=== PATIENT | male | born 1995 | race Caucasian/White ===

== ENCOUNTER 2021-04-25 08:00 | Outpatient (CLI) | payer OTHER | END 2021-04-25 23:59 | LOC: LAB.N 08:00 | PROVIDERS: ATTEND Nurse Practitioner | DX: U07.1 COVID-19 (principal) | CPT/HCPCS: 87275; 87276 ==

== ENCOUNTER 2022-09-19 08:30 | Outpatient (CLI) | payer OTHER ==
[2022-09-19 21:28] LABS: CHLAMYDIA TRACHOMATIS DNA NEGATIVE (NEGATIVE); NEISSERIA GONORRHOEAE DNA NEGATIVE (NEGATIVE); TRICHOMONAS VAGINALIS DNA NEGATIVE (NEGATIVE)
== END 2022-09-19 08:45 | disposition home or self-care (01) ==
LOC: LAB.N 08:30
PROVIDERS: ATTEND Registered Nurse
DX: R10.2 Pelvic and perineal pain (principal)
CPT/HCPCS: 87491; 87591; 87661

== ENCOUNTER 2023-01-28 12:39 | Outpatient (CLI) | payer OTHER | END 2023-01-28 12:40 | disposition critical access hospital (66) | LOC: EMS 12:39 | DX: R45.851 Suicidal ideations (principal) | CPT/HCPCS: A0425; A0429 ==

== ENCOUNTER 2023-01-28 13:01 | Emergency (ER) | payer OTHER ==
[2023-01-28 13:22] VITALS: BP 143/90; O2SAT 99
[2023-01-28 13:22] LABS: BASOPHILS # (AUTO) 0.1 10^3/uL (0.0-0.1); BASOPHILS % (AUTO) 0.6 %; EOSINOPHILS % (AUTO) 0.4 %; HCT - HEMATOCRIT 45.7 % (42.0-52.0); HGB - HEMOGLOBIN 15.1 g/dL (14.0-18.0); LYMPHOCYTES # (AUTO) 1.6 10^3/uL (1.5-3.5); LYMPHOCYTES % (AUTO) 20.3 %; MEAN CORPUSCULAR HEMOGLOBIN 27.1 pg (27.0-31.0); MEAN CORPUSCULAR VOLUME 81.9 fL (80.0-94.0); MEAN PLATELET VOLUME 8.8 fL (7.4-11.4); MONOCYTES # (AUTO) 0.6 10^3/uL (0.0-1.0); MONOCYTES % (AUTO) 8.2 %; NEUTROPHILS # (AUTO) 5.5 10^3/uL (1.5-6.6); NEUTROPHILS % (AUTO) 70.2 %; PLT - PLATELET COUNT 288 10^3/uL (130-450); RED BLOOD COUNT 5.58 10^6/uL (4.70-6.10); RED CELL DISTRIBUTION WIDTH 12.6 % (12.0-15.0); WHITE BLOOD COUNT 7.8 x10^3/uL (4.8-10.8)
[2023-01-28 13:54] LABS: ALBUMIN 4.7 g/dL (3.2-5.5); ALBUMIN/GLOBULIN RATIO 1.6 (1.0-2.2); ALKALINE PHOSPHATASE 88 IU/L (42-121); ALT ALANINE AMINOTRANSFERASE 42 IU/L (10-60); AST ASPARTATE AMINOTRANSFERASE 26 IU/L (10-42); BILIRUBIN,TOTAL 0.9 mg/dL (0.2-1.0); BUN - BLOOD UREA NITROGEN 12 mg/dL (6-20); CALCIUM 9.9 mg/dL (8.5-10.3); CARBON DIOXIDE - CO2 28 mmol/L (21-32); CHLORIDE 102 mmol/L (101-111); CK- CREATINE KINASE 230 IU/L (30-223); CREATININE 0.9 mg/dL (0.6-1.3); ETOH - ETHANOL < 10.0 mg/dL; GFR - MDRD 102 (>89); GLUCOSE 132 mg/dL (74-104); LIPASE 18 U/L (11-82); MAGNESIUM 1.8 mg/dL (1.7-2.3); POTASSIUM 3.8 mmol/L (3.5-4.5); SODIUM 137 mmol/L (135-145); TOTAL PROTEIN 7.7 g/dL (6.4-8.9)
[2023-01-28 13:56] LABS: MUDS CUTOFF CONCENTRATIONS CUTOFF CONC BELOW:
--- NOTE | 2023-01-28 13:56 | ED Physician Documentation ---
History of Present Illness - Stated complaint Stated Complaint: SI - Chief complaint Chief Complaint: MHE - Additonal information Additional information: 27-year-old male who is active [employer] was referred to the emergency department by his psychiatrist. He reports that for several months he has been having difficulty sleeping. He is tortured by thoughts of past events. He reports passive suicidal ideation. However he tells me that when he was talking to his psychiatrist he talked about wanting to really end his life last week however he did not because he had some things he needed to"take care of first". On presentation the emergency department he is alert well-appearing. He does not desire to be hospitalized. He is hoping he can have medication adjustment. He resides in private housing with 3 other roommates. Denies access to guns or weapons. Denies alcohol or substance use. No history of psychiatric hospitalization in the past. Review of Systems Constitutional: denies: Fever, Chills Cardiac: reports: Reviewed and negative Respiratory: reports: Reviewed and negative GI: reports: Reviewed and negative Neurologic: denies: Numbness, Difficulty speaking Psychiatric: reports: Depressed, Suicidal, Insomnia. denies: Homicidal, Hallucinations, Delusions, Anxiety PD PAST MEDICAL HISTORY - Allergies Allergies/Adverse Reactions: Allergies Allergy/AdvReac Type Severity Reaction Status Date / Time No Known Drug Allergies Allergy Verified 01/28/23 13:15 PD ED PE NORMAL - General General: Alert and oriented X 3, No acute distress, Well developed/nourished - HEENT HEENT: Atraumatic, Moist mucous membranes - Neck Neck: Supple, no meningeal sign - Cardiac Cardiac: RRR, No murmur - Respiratory Respiratory: No respiratory distress, Clear bilaterally - Abdomen Abdomen: Normal bowel sounds, Soft, Non tender - Derm Derm: Normal color, Warm and dry, No rash, Other (Thinning hair) - Extremities Extremities: No deformity - Neuro Neuro: Alert and oriented X 3, fourdrinier tender 2-12 intact Eye Opening: Spontaneous Motor: Obeys Commands Verbal: Oriented GCS Score: 15 - Psych Psych: Other (Flat affect. Endorses suicidal ideation but not sure he would act on it. Does not like to talk about what his plan would be. States that he was for sure going to end things last week, but had to take care of some things first.) Results - Vitals Vitals: Vital Signs - 24 hr 01/28/23 13:10 Temperature 36.9 C Heart Rate 110 H Respiratory 18 Rate Blood Pressure 143/90 H O2 Saturation 99 Oxygen O2 Source Room air - Labs Labs: Laboratory Tests 01/28/23 01/28/23 01/28/23 13:16 13:16 13:52 WBC 7.8 RBC 5.58 Hgb 15.1 Hct 45.7 MCV 81.9 MCH 27.1 MCHC 33.0 RDW 12.6 Plt Count 288 MPV 8.8 Neut # (Auto) 5.5 Lymph # (Auto) 1.6 Spencer # (Auto) 0.6 Eos # (Auto) 0.0 Baso # (Auto) 0.1 Absolute Nucleated RBC 0.00 Nucleated RBC % 0.0 Sodium 137 Potassium 3.8 Chloride 102 Carbon Dioxide 28 Anion Gap 7.0 BUN 12 Creatinine 0.9 Estimated GFR (MDRD) 102 Glucose 132 H Calcium 9.9 Magnesium 1.8 Total Bilirubin 0.9 AST 26 ALT 42 Alkaline Phosphatase 88 Total Creatine Kinase 230 H Total Protein 7.7 Albumin 4.7 Globulin 3.0 Albumin/Globulin Ratio 1.6 Lipase 18 TSH 0.73 Urine Color YELLOW Urine Clarity CLEAR Urine pH 6.0 Ur Specific [place] 1.015 Urine Protein NEGATIVE Urine Glucose (UA) NEGATIVE Urine Ketones TRACE Urine Occult Blood NEGATIVE Urine Nitrite NEGATIVE Urine Bilirubin NEGATIVE Urine Urobilinogen 0.2 (NORMAL) Ur Leukocyte Esterase NEGATIVE Ur Microscopic Review NOT INDICATED Urine Culture Comments NOT INDICATED Salicylates < 1.5 Urine Opiates Screen NEGATIVE Ur Oxycodone Screen NEGATIVE Urine Methadone Screen NEGATIVE Ur Propoxyphene Screen NEGATIVE Acetaminophen < 0.1 Ur Barbiturates Screen NEGATIVE Ur Tricyclics Screen NEGATIVE Ur Phencyclidine Scrn NEGATIVE Ur Amphetamine Screen NEGATIVE U Methamphetamines Scrn NEGATIVE U Benzodiazepines Scrn NEGATIVE Urine Cocaine Screen NEGATIVE U Cannabinoids Screen NEGATIVE Ethyl Alcohol < 10.0 PD Medical Decision Making - ED course Complexity details: reviewed results, re-evaluated patient, d/w patient ED course: 27-year-old male who is active [employer] presents emergency department for evaluation of suicidal ideation. He had expressed to his psychiatrist that he was planning on fully ending everything last week but he had to take care of a few things first. He has a longstanding history of depressive thoughts, he struggles with night terrors and memories of recent and past events. Patient did have CBC, electrolytes urine drug screen obtained today which per my interpretation showed no acute findings. He was seen by our social media manager who felt that he was a high risk for self-harm and as such we reached out to various psychiatric hospitals but he was excepted to [facility] again. Patient's chief is at the bedside. The patient agrees to go voluntarily. Appropriate COBRA paperwork completed. Departure - Departure Disposition: [facility] Psych Hosp/Unit DC/Xfer Clinical Impression: Suicidal ideation Depression Qualifiers: Depression Type: other depression Qualified Code(s): F32.89 - Other specified depressive episodes Forms: PCP List
[2023-01-28 14:01] LABS: THYROID STIMULATING HORMONE 0.73 uIU/mL (0.34-5.60)
[2023-01-28 14:04] LABS: BILIRUBIN,URINE NEGATIVE (NEGATIVE); GLUCOSE, URINE (UA) NEGATIVE (NEGATIVE); KETONES,URINE (UA) TRACE mg/dL (NEGATIVE); LEUKOCYTE ESTERASE, URINE NEGATIVE (NEGATIVE); NITRITE,URINE NEGATIVE (NEGATIVE); OCCULT BLOOD,URINE NEGATIVE (NEGATIVE); PROTEIN,URINE NEGATIVE (NEGATIVE); UROBILINOGEN,URINE 0.2 (NORMAL) E.U./dL (NORMAL)
[2023-01-28 14:08] LABS: CLARITY,URINE CLEAR (CLEAR)
[2023-01-28 14:16] LABS: SALICYLATE < 1.5 mg/dL
[2023-01-28 14:18] LABS: AMPHETAMINE SCREEN,URINE NEGATIVE (NEGATIVE); BARBITURATE SCREEN,UR NEGATIVE (NEGATIVE); BENZODIAZEPINES SCREEN, URINE NEGATIVE (NEGATIVE); COCAINE SCREEN URINE NEGATIVE (NEGATIVE); METHADONE SCREEN, URINE NEGATIVE (NEGATIVE); METHAMPHETAMINES SCREEN, URINE NEGATIVE (NEGATIVE); OPIATE SCREEN, URINE NEGATIVE (NEGATIVE); OXYCODONE SCREEN, URINE NEGATIVE (NEGATIVE); PROPOXYPHENE SCREEN, URINE NEGATIVE (NEGATIVE); THC CANNABINOID SCREEN, URINE NEGATIVE (NEGATIVE); TRICYCLIC ANTIDEPRESSANT,URINE NEGATIVE (NEGATIVE)
[2023-01-28 14:19] LABS: ACETAMINOPHEN < 0.1 ug/mL
== END 2023-01-28 19:56 ==
LOC: EDUNIT# → ED 13:01
DX: R45.851 Suicidal ideations (principal); F32.89 Other specified depressive episodes
CPT/HCPCS: 36415; 80053; 80306; 80307; 80320; 80329; 81001; 81003; 82550; 83690; 83735; 84443; 85025; 87086; 99284; 99285

== ENCOUNTER 2023-04-30 11:10 | Outpatient (CLI) | payer OTHER ==
--- NOTE | 2023-04-30 11:52 | Sleep Patient Instructions ---
Sleep Center Visit Summary - Patient Visit Information Reason for Visit: Initial consult for evaluation of sleep disordered breathing and other sleep issues. - Patient Instructions Instructions Attached: Sleep Study Additional Instructions: You will be completing a sleep study, either an in-lab polysomnography (PSG) or home sleep study (HST). You will follow-up in the sleep care office after the sleep study is completed to hear the results and talk about therapy, if needed. You will be called by our office staff to schedule this appointment, but you may contact us with any questions. - Clinic Information Contact: [facility] [address] [place] [address] [email or web address] T: [phone]
--- NOTE | 2023-04-30 11:57 | SLEEP CARE CONSULTATION ---
Information from patient questionnaire entered by Nery Rueda. I have reviewed and concur with the information entered by Nery Rueda. This document represents the service I personally performed and the decisions made by me, Alyica Soliz ARNP. History of Present Illness Service Date and Time: 04/30/2023 1110 Reason for Visit: New patient Chief Complaint: reports: Insomnia, Unrefreshed sleep, Snoring, Excessive daytime sleepiness, Fatigue, Frequent awakenings at night Date of Onset: 3MONTHS Usual bedtime: 9PM Time it takes to fall asleep: 1-2HRS Snores at night: Yes Observed to quit breathing while asleep: Yes Sleeps alone due to snoring: No Number of times waking at night: 3 Reasons for waking at night: reports: Gasping for air, Pain, Bathroom Toss, Turn, or Twitch while sleeping: Yes Recalls having dreams: Yes Usually gets out of bed at: 5AM-0600 Feels refreshed in the morning: No Morning headache: Yes (all the time; last for 1-2 hours) Sleepy or fatigued during the day: Yes (rare unintentional naps) Ever fallen asleep while driving: No Takes day naps: No Dreams during day naps: Yes Prior sleep studies: No Additional HPI information: I had the pleasure of seeing ELISABET BANKS today regarding the possibility of him having a sleep disorder. His current complaints are excessive daytime sleepiness, fatigue, frequent night awakenings, insomnia, snoring and unrefres hed sleep. He says he is tired all the time. He says it is hard to breathe at night sometimes, he has to wake up at night to catch his breath. He used to wake up nearly nightly with nightmares before he started Prazosin in January. They have been increasing his dose and he is not having many nightmares now. He says he has been told he snores. He has woke up gasping for air. He wakes up on average 3 times at night, for bathroom, headaches or other reasons. He has been given medications for anxiety including Wellbutrin and fluoxetine. - Parasomnia Symptoms Ever been unable to move upon waking from sleep: Yes (not often, rarely) Walks in sleep: No Talks in sleep: No Ever acted out dreams in sleep: No Ever felt weak in the knees when startled or emotional: No Bothered by creepy, crawly, restless sensations in legs: Yes (when sitting or in bed) Problems with memory or concentration: Yes (both) Subjective Initial [place] Sleepiness Scale score: 12 (04/30/23) Past Medical History Past Medical History: reports: Anxiety Social History The patient's occupation is a AT. Patient is Single and lives in . Have you smoked in the past 12 months: No Alcohol use: No Alcohol amount and frequency: just quit 4 months ago Caffeine use: Yes Caffeine amount and frequency: 1 CUP 2 A WEEK Family History Family history of sleep disordered breathing: Yes Family Hx Sleep Apnea: Mother: Snoring, Father: Snoring Allergies and Home Medications Known drug allergies: No Drug allergies reviewed: Yes Home medication list reviewed: Yes Allergy and home medication list: Allergies No Known Drug Allergies Allergy (Verified 04/30/23 08:22) Home Medications Medication Instructions Recorded Confirmed Last Taken Type Fluoxetine HCl [Prozac] See Rx Instructions .ROUTE .COMPLEX 04/30/23 04/30/23 Unknown History Prazosin HCl [Minipress] See Rx Instructions .ROUTE .COMPLEX 04/30/23 04/30/23 Unknown History buPROPion HCL [Wellbutrin Xl] See Rx Instructions .ROUTE .COMPLEX 04/30/23 04/30/23 Unknown History Review of Systems Weight gain over past 5 years: 30 in last year or so; about 57 gained since 2019 Cardiovascular: reports: have to sleep sitting up. denies: high blood pressure Respiratory: reports: shortness of breath Gastrointestinal: denies: heartburn Neurological: denies: headaches Psychiatric: reports: depression Ear/Nose/Throat: reports: nose bleeds. denies: tonsillectomy Endocrine: reports: too hot or cold Physical Exam Vital signs obtained and entered by: NERY Coronado MA Blood Pressure: 153/89 (RIGHT ARM) Cuff size: long Heart Rate: 109 O2 Saturation: 96 Height: 5 ft 7.25 in Weight: 235 lb 12.8 oz Body Mass Index: 36.6 BMI Classification: Obese Neck circumference: 17 Nostrils: patent to airflow Mouth and throat: narrow oropharynx Soft palate: normal Hard palate: normal Uvula: normal Uvula visualization: 100% Mallampati Class I Tongue: enlarged in size with teeth holder on lateral edges Tonsils: 1+ Neck: normal w/o lymphadenopathy or thyromegaly Heart: regular rate and rhythm Lungs: clear bilaterally Impression and Plan 1. Suspected Obstructive Sleep Apnea-Hypopnea Syndrome, as suggested by a history of loud and irregular snoring, gasping or choking in sleep, morning headache, frequent awakening during the night, unrefreshed sleep, cognitive impairment, and excessive daytime sleepiness. Narrow oropharynx and obesity are common predisposing factors for obstructive sleep apnea-hypopnea syndrome. I recommend proceeding to polysomnography to confirm the diagnosis and to assess severity. If the patient has significant sleep disordered breathing, a manual CPAP titration study will also be performed to find the optimal treatment pressure. I informed the patient of what the sleep studies involve and after some discussion, obtained agreement to proceed. The pathophysiology of obstructive sleep apnea-hypopnea syndrome was discussed with the patient and health risks of cardiovascular and cerebrovascular disease if not treated. Risks of drowsy driving discussed in detail and patient advised to avoid long distance driving and to toe puller at the first sign of drowsiness. Patient agreed to plan. * Schedule polysomnography. * Avoid long distance driving or driving when feeling sleepy. * Avoid alcohol, sedative and muscle relaxant around bedtime. * Attempt to lose weight. * Review instructions provided by trained office staff on how to prepare for the sleep study. * Return for follow-up after sleep study completed. Counseling Topics: Weight loss health impact Plan: PSG Visit Type: In Office Time Spent with Patient (minutes): 30 Provider Statement: I spent 100% of the Face to Face Visit with the patient with greater than 50% spent counseling the patient and coordination of care.
[2023-04-30 12:01] VITALS: BP 153/89; O2SAT 96
== END 2023-04-30 11:11 | disposition home or self-care (01) ==
LOC: SC 11:10
PROVIDERS: ATTEND Nurse Practitioner Family
DX: R06.83 Snoring (principal); G47.8 Other sleep disorders; R51.9 Headache, unspecified; R41.89 Other symptoms and signs involving cognitive functions and awareness; G47.10 Hypersomnia, unspecified; R53.83 Other fatigue; E66.9 Obesity, unspecified; Z68.36 Body mass index [BMI] 36.0-36.9, adult
CPT/HCPCS: 99203; 99212

== ENCOUNTER 2023-05-06 20:05 | Outpatient (CLI) | payer OTHER | END 2023-05-06 20:06 | disposition home or self-care (01) | LOC: SC 20:05 | PROVIDERS: ATTEND Nurse Practitioner Family | DX: R51.9 Headache, unspecified (principal); G47.10 Hypersomnia, unspecified; R53.83 Other fatigue; G47.8 Other sleep disorders; E66.9 Obesity, unspecified; Z68.36 Body mass index [BMI] 36.0-36.9, adult | CPT/HCPCS: 95810 ==

== ENCOUNTER 2023-06-07 14:19 | Outpatient (CLI) | payer OTHER ==
--- NOTE | 2023-06-07 13:47 | Sleep Patient Instructions ---
Sleep Center Visit Summary - Patient Visit Information Reason for Visit: Sleep study follow up - Patient Instructions Instructions Attached: Snoring Tips Prevent Additional Instructions: Your sleep study today was negative for significant sleep disordered breathing. You were found to have episodes of snoring. There are different ways to control snoring including weight loss, oral devices made by a dentist or surgical options through ENT specialist. You should not use oral devices that do not fit properly because they can affect your bite. You should also check insurance coverage of oral devices for snoring because they may not be cover well. You may obtain a referral to an ENT specialist through your primary provider. Follow-up as needed. - Clinic Information Contact: [facility] [address] [place] [address] [email or web address] T: [phone]
--- NOTE | 2023-06-07 13:54 | SLEEP CARE CONSULTATION ---
Information from patient questionnaire entered by Nery Rueda. I have reviewed and concur with the information entered by Nery Rueda. This document represents the service I personally performed and the decisions made by , Alycia Soliz ARNP. History of Present Illness Service Date and Time: 06/07/2023 1340 Initial [place] Sleepiness Scale score: 12 (04/30/23) Current [place] Sleepiness Scale score: 17 (06/07/23) Additional HPI information: ELISABET BANKS returns for follow up and results of the recently performed polysomnography. The patient was informed of the following findings: No significant sleep disordered breathing with an average AHI of 3.8 and darcy oxygen saturation of 88%. I explained the pathophysiology behind obstructive sleep apnea. Patient does not have sleep apnea and was advised how weight gain could increase the risk of developing sleep apnea in the future. I strongly encouraged the patient to lose weight. Patient has mild snoring. Snoring can be reduced by weight loss. Weight loss is best achieved with diet consult. Patient instructed to contact PCP for referral. Snoring can also be treated with an oral appliance from a dentist. Advised to check insurance coverage. In addition, an ENT evaluation can be do to see if other treatment is indicated. Patient does not drink alcohol. Patient was cautioned about risks of drowsy driving until sleepiness symptoms resolve. Patient denies drowsy driving. Sleep Study - Results Type of Sleep Study: Polysomnography (COMPLETED 05/06/23) Prior sleep studies: No Polysomnography/Home Sleep Study results: IMPRESSION: The quality of the study is good. The patient had reduced sleep efficiency due to prolonged awakening in the middle of the night. The sleep architecture was abnormal for sleep fragmentation and reduced amount of time spent in REM sleep. Respiratory monitoring showed no significant sleep disordered breathing obstructive sleep apnea-hypopnea (AHI = 3.8) or mild hypoxia (darcy oxygen saturation of 88%). The respiratory events occurred mainly during supine sleep (supine AHI = 4.7; non-supine = 0.75). Snore was infrequent and light in intensity. There was no significant periodic leg movement of sleep. Cardiac rhythm was normal sinus rhythm without significant arrhythmia. No abnormal behavior (parasomnia) observed during the night. Allergies and Home Medications Known drug allergies: No Drug allergies reviewed: Yes Home medication list reviewed: Yes (Topiramate for night terrors) Allergy and home medication list: Allergies No Known Drug Allergies Allergy (Verified 06/05/23 12:46) Home Medications Medication Instructions Recorded Confirmed Last Taken Type Fluoxetine HCl [Prozac] See Rx Instructions .ROUTE .COMPLEX 04/30/23 06/07/23 Unknown History buPROPion HCL [Wellbutrin Xl] See Rx Instructions .ROUTE .COMPLEX 04/30/23 06/07/23 Unknown History Topiramate [Topiramate ER] See Rx Instructions .ROUTE .COMPLEX 06/07/23 06/07/23 Unknown History Review of Systems Review of systems same as previous: Yes (NO CHANGE) Physical Exam Vital signs obtained and entered by: NERY Coronado MA Blood Pressure: 149/86 (LEFT ARM) Cuff size: regular Heart Rate: 95 O2 Saturation: 97 Height: 5 ft 7.25 in Weight: 242 lb Body Mass Index: 37.6 BMI Classification: Obese Impression and Plan 1. Snoring but no significant sleep disordered breathing. Patient advised that often weight loss will reduce snoring as well as apnea risk. An oral appliance can also be used for snoring. This would require a dental consultation. Patient cautioned not to use other online appliances as can cause bite issues. Patient is advised to check if insurance will cover. An ENT consult can also be helpful to determine if any other treatment is an option. 2. Obesity, unspecified. Currently patients BMI is 37.6. Obesity increases the risk of apnea, CPAP pressure requirements and overall health risks especially cardiovascular and diabetes. Thus patient is advised to lose weight. * Attempt to lose weight * Avoid alcohol consumption near bedtime * The patient is cautioned about driving until sleepiness is completely resolved. * Return as needed for follow up. Counseling Topics: Weight loss health impact Follow up with Sleep Care in: as needed Visit Type: In Office Time Spent with Patient (minutes): 15 Provider Statement: I spent 100% of the Face to Face Visit with the patient with greater than 50% spent counseling the patient and coordination of care.
[2023-06-07 14:04] VITALS: BP 149/86; O2SAT 97
== END 2023-06-07 14:20 | disposition home or self-care (01) ==
LOC: SC 14:19
PROVIDERS: ATTEND Nurse Practitioner Family
DX: R06.83 Snoring (principal); E66.9 Obesity, unspecified; Z68.37 Body mass index [BMI] 37.0-37.9, adult
CPT/HCPCS: 99212; 99213